=== PATIENT | male | born 1980 | race Caucasian/White ===

== ENCOUNTER 2020-09-07 16:28 | Emergency (ER) | payer SELFPAY ==
[~2020-09-07] VITALS: Ht 182.9 cm; Wt 109.3 kg
[2020-09-07 16:36] VITALS: BP 143/63
--- NOTE | 2020-09-07 16:41 | NUR ---
PT TAKEN TO BED 6.
[2020-09-07] MEDS ORDERED: LORA10TA19 PO (17:04)
--- NOTE | 2020-09-07 17:16 | NUR ---
C/O HEARING SOUND IN RIGHT EAR SINCE YESTERDAY INTERMITTENTLY HX DENIES
--- NOTE | 2020-09-07 17:21 | NUR ---
Patient discharged with v/s stable. Written and verbal after care instructions given and explained. Patient alert, oriented and verbalized understanding of instructions. Ambulatory with steady gait. All questions addressed prior to discharge. ID band removed. Patient advised to follow up with PMD. Rx of loratadine given. Patient educated on indication of medication including possible reaction and side effects. Opportunity to ask questions provided and answered.
== END 2020-09-07 17:21 | disposition home or self-care (01) ==
LOC: MED 16:28
DX: H65.93 Unspecified nonsuppurative otitis media, bilateral (principal); J30.2 Other seasonal allergic rhinitis; Z79.899 Other long term (current) drug therapy
CPT/HCPCS: 99282

== ENCOUNTER 2020-11-02 09:20 | Emergency (ER) | payer SELFPAY ==
[~2020-11-02] VITALS: Ht 175.3 cm; Wt 77.1 kg
[~2020-11-02 09:20] MED LIST: LORA10TA19 PO
[2020-11-02 09:50] VITALS: BP 136/77
[2020-11-02] MEDS ORDERED: SODIUM CHLORIDE FLUSH 10 ML SYR IVF STA (10:01)
== END 2020-11-02 11:00 | disposition left against medical advice (07) ==
LOC: MED 09:20
DX: Z53.21 Procedure and treatment not carried out due to patient leaving prior to being seen by health care provider (principal)

== ENCOUNTER 2021-04-23 10:56 | Emergency (ER) | payer SELFPAY ==
[~2021-04-23] VITALS: Ht 179.1 cm; Wt 102.1 kg
[2021-04-23 11:16] VITALS: BP 159/93
[2021-04-23] MEDS ORDERED: ALUMINUM HYD/MAG/SIMETHICONE 30 ML UDC PO ONE (11:30)
[2021-04-23] MEDS ORDERED: LANS15EC28 PO (11:36)
== END 2021-04-23 11:30 | disposition left against medical advice (07) ==
LOC: MED 10:56
DX: R10.12 Left upper quadrant pain (principal); K21.9 Gastro-esophageal reflux disease without esophagitis; Z79.899 Other long term (current) drug therapy
CPT/HCPCS: 93005; 99283